=== PATIENT | female | born 1985 | race Caucasian/White ===

== ENCOUNTER 2021-03-13 05:55 | Inpatient (IN) | payer OTHER ==
[2021-03-13 06:35] VITALS: BMI 32.6
[2021-03-13] MEDS ORDERED: OXYTOCIN 20 UNITS in 0.9% NS 40 UNIT/2,000 ML INFUS.BAG IV ONE (07:50)
[2021-03-13] MEDS ORDERED: ceFAZolin SODIUM 1 GM VIAL ONE (07:52)
[2021-03-13] MEDS ORDERED: DEXAMETHASONE SOD PHOSPHATE 4 MG/1 ML VIAL ONE (07:52)
[2021-03-13] MEDS ORDERED: ONDANSETRON 4 MG/2 ML VIAL ONE (07:52)
[2021-03-13] MEDS ORDERED: morphine SULFATE/PF 1 MG/2 ML (2cc Syringe - QUVA) ONE (07:53)
[2021-03-13] MEDS ORDERED: ELECTROLYTE-148 SOLN 500 ML IV ONE (07:58)
[2021-03-13] MEDS ORDERED: CITRIC ACID/SODIUM CITRATE 30 ML UNIT-DOSE CUP PO ONE (07:58)
[2021-03-13] MEDS ORDERED: ELECTROLYTE-148 SOLN 1,000 ML IV SCH (08:00)
[2021-03-13] MEDS ORDERED: OXYTOCIN 10 UNITS/ML VIAL ONE (08:23)
[2021-03-13] MEDS ORDERED: KETOROLAC TROMETHAMINE 30 MG/1 ML VIAL ONE (08:48)
[2021-03-13] MEDS ORDERED: ONDANSETRON 4 MG/2 ML VIAL IVPUSH PRN (09:39)
[2021-03-13] MEDS ORDERED: SENNOSIDES/DOCUSATE COMBO (SENNA PLUS) TABLET (UD) PO PRN (09:40)
[2021-03-13] MEDS ORDERED: METHYLERGONOVINE MALEATE 0.2 MG/1 ML AMP IM PRN (09:40)
[2021-03-13] MEDS ORDERED: IBUPROFEN 800 MG/8 ML IJ IVPB PRN ×2 (09:40→09:42)
[2021-03-13] MEDS ORDERED: OXYTOCIN 20 UNITS in 0.9% NS 20 UNIT/1,000 ML INFUS.BAG IV SCH (09:45)
[2021-03-13] MEDS ORDERED: oxyCODONE HCL 5 MG TABLET PO PRN ×2 (21:40)
[2021-03-14 07:49] LABS: BASO % 0.5 % (0-2.0); EOS % 0.5 % (0-4.5); HEMATOCRIT 31.7 % (32.4-45.2); HEMOGLOBIN 10.4 GM/dL (10.7-15.3); LYMPH % 12.9 % (8-40); MCH 28.4 pg (25.7-33.7); MCHC 32.8 g/dl (32.0-36.0); MEAN CELL VOLUME 86.8 fl (80-96); MEAN PLT VOLUME 9.8 fl (7.5-11.1); MONO % 3.5 % (3.8-10.2); NEUT % 82.6 % (42.8-82.8); PLATELET COUNT 161 10^3/uL (134-434); RBC 3.65 M/mm3 (3.60-5.2); RDW 13.9 % (11.6-15.6); WHITE BLOOD COUNT 8.7 K/mm3 (4.0-10.0)
[2021-03-14] MEDS: IBUPROFEN 600 MG TABLET (FP) PO PRN ×3 (09:08→22:29)
[2021-03-14] MEDS: SIMETHICONE 80 MG TAB.CHEW (FP) PO PRN ×3 (09:09→19:45)
[2021-03-14] MEDS ORDERED: BISACODYL 10 MG SUPP.RECT RC PRN (09:40)
[2021-03-14] MEDS: ACETAMINOPHEN 325 MG TABLET (FP) PO PRN (19:45)
[2021-03-15] MEDS: SIMETHICONE 80 MG TAB.CHEW (FP) PO PRN ×2 (06:06→10:32)
[2021-03-15] MEDS: IBUPROFEN 600 MG TABLET (FP) PO PRN ×2 (06:06→10:32)
[2021-03-15] MEDS: ACETAMINOPHEN 325 MG TABLET (FP) PO PRN (06:07)
[2021-03-15 10:01] VITALS: BP 133/79; PULSE 76; TEMP 98
[2021-03-15 13:23] LABS: HIV INTERPRETATION NEGATIVE (NEGATIVE)
== END 2021-03-15 12:55 | disposition home or self-care (01) | DRG 788 ==
LOC: JLDR 05:55 → J3W 14:15
PROVIDERS: ADMIT Obstetrics & Gynecology; ATTEND Obstetrics & Gynecology
PROC: 10D00Z1 Extraction of Products of Conception, Low, Open Approach (ICD-10-PCS; principal; 2021-03-13)
PROC: 0DNW0ZZ Release Peritoneum, Open Approach (ICD-10-PCS; 2021-03-13)
DX: O34.211 Maternal care for low transverse scar from previous cesarean delivery (principal); O34.13 Maternal care for benign tumor of corpus uteri, third trimester; D25.9 Leiomyoma of uterus, unspecified; N73.6 Female pelvic peritoneal adhesions (postinfective); Z3A.39 39 weeks gestation of pregnancy; Z37.0 Single live birth
CPT/HCPCS: 36415; 85025; 87389